=== PATIENT | female | born 2000 | race Hispanic/Latino ===

== ENCOUNTER 2024-11-09 13:28 | Emergency (ER) | payer OTHER ==
[~2024-11-09] VITALS: Ht 177.8 cm; Wt 124.7 kg
[2024-11-09] MEDS: ketOROlac 15MG/ML VIAL (15MG/ML) IV STA (14:30)
[2024-11-09] MEDS: acetaMINOPHEN 325 MG TAB PO STA (14:30)
[2024-11-09] MEDS: 0.9%NACL 1000ML 1,000 ML IV STA (14:30)
--- NOTE | 2024-11-09 15:22 | ERN ---
ED Note History of Present Illness Stated Complaint: HEADACHE,EARS HURT,NAUSEA, MULTIPLE COMPLAINTS Chief Complaint: Other Problems Time Seen by MD: 13:32 Time Seen by Midlevel: 13:36 Dictation: 23-year-old female coming in with multiple complaints, earache, throat pain, feeling weak. Patient states she was diagnosed with ear infection, strep throat and flu on four days ago, is currently taking doxycycline and a Medrol pack and received Rocephin x2 IM at the PCP's office. Patient states she feels like there is no improvement. And wants to evaluate if she has not pneumonia. Patient at this time vital signs are stable, no fever, no nausea, no vomiting. Allergies: Coded Allergies: Penicillins (Unverified Allergy, Unknown, 11/09/24) Past Medical History Past Medical History: No Pertinent History Surgical History: Other Surgical History Other: JESSY EYE SURGERY Review of System Dictation Constitutional: Negative for fever,chills, and weight loss Eyes: Negative for injury, pain,redness, and discharge ENT: Complaining of ear pain, throat pain Cardiovascular: Negative for chest pain, palpitations, and edema Respiratory: Negative for shortness of breath, finding of cough, and wheezing, Abdomen/GI: Negative for abdominal pain, nausea, vomiting, diarrhea, and constipation Back: Negative for injury and pain : Negative for injury, bleeding and discharge MS/Extremity: Negative for injury and deformity Skin: Negative for rash, and discoloration Neuro: Negative for headache, weakness, numbness, tingling, and seizure Psych: Negative for suicide ideation, homicidal ideation, and hallucinations Review of Systems: was completed Initial Vital Sign VS Vital Signs Date Time Temp Pulse Resp B/P (MAP) Pulse Ox O2 Delivery O2 Flow Rate FiO2 11/09/24 13:33 98.2 118 18 103/69 96 Room Air 11/09/24 13:59 0 21 Physical Exam Dictation General: awake, alert, NAD Head/Face: Normocephalic, atraumatic Eyes: PERRL, EOMI, vision at baseline ENT: oral cavity clear, TMs clear, no signs of infection Neck: Trachea midline, supple, no nuchal rigidity Cardiovascular: RRR, normal S1/S2, No MRGs, no JVD Respiratory: CTAB, no respiratory distress, No rales or wheezes Abdomen: Soft, non-tender, non-distended, normal bowel sounds, no guarding or rebound. Skin: Warm, dry, normal turgor, no rash MS/Extremity: Pulses equal, no cyanosis, neurovascular intact, FROM Neuro: COAx4, GCS 15, strength 5/5, CN 2-12 intact, normal cerebellar exam, normal gait, Psych: Normal behavior, mood, and affect normal ED Course ED Course Orders Procedure Category Date Status Time Chest 1vw RAD 11/09/24 Taken 13:51 0.9%Nacl 1000ml (Ns PHA 11/09/24 In Process 1000ml) 13:51 Acetaminophen 325 Tab PHA 11/09/24 Complete (Tylenol 325mg Tab 13:51 Ketorolac PHA 11/09/24 Complete Tromethamine 15mg/Ml 13:51 Current Medications Medications (Trade) Dose Ordered Sig/Maryjo Route PRN Reason Start Time Stop Time Status Last Admin Dose Admin Acetaminophen (TYLenol 325MG TAB) 650 mg ONCE STAT PO 11/09/24 13:51 11/09/24 13:55 DC 11/09/24 14:30 Ketorolac Tromethamine (toRADol) 15 mg ONCE STAT IV 11/09/24 13:51 11/09/24 13:55 DC 11/09/24 14:30 Sodium Chloride 1,000 ml @ 100 mls/hr Q10H STAT IV 11/09/24 13:51 11/09/24 23:50 11/09/24 14:30 Vital Signs Date Time Temp Pulse Resp B/P (MAP) Pulse Ox O2 Delivery O2 Flow Rate FiO2 11/09/24 13:59 98.2 118 18 103/69 96 Room Air* 0 21 11/09/24 13:33 98.2 118 18 103/69 96 Room Air Medical Decision Making MDM MDM: 23-year-old female coming in with multiple complaints, earache, throat pain, feeling weak. Patient states she was diagnosed with ear infection, strep throat and flu on four days ago, is currently taking doxycycline and a Medrol pack and received Rocephin x2 IM at the PCP's office. Patient states she feels like there is no improvement. And wants to evaluate if she has not pneumonia. Patient at this time vital signs are stable, no fever, no nausea, no vomiting. Differential diagnosis: Pneumonia, viral syndrome, Rationale: Tests considered and ordered secondary to shared decision making include: Previous outside records reviewed: Old ER visits. Risk of complication and/or morbidity or mortality of patient management: None Medications-Per medication reconciliation Need for hospitalization: Patient does not meet criteria for hospitalization. Need for emergency major/minor surgery: No There are no social concerns with this patient. Prescription drug management Prescriptions will include symptomatic care Patient's prior external medical records from other ER visits were reviewed by me as indicated. Prior testing and results from previous visits were reviewed. Prior tests were taken into account with medical decision making and resource utilization, independent historian/historians were used to obtain complete medical history. I independently interpreted the test that were performed, results were reviewed by me and considered findings on radiology if ordered. Medical management and examination interpretation discussions were had by me with other qualified healthcare professionals as indicated for the patient's care. DX & DISP Disposition: Discharge Departure Impression: Primary Impression: Cough Additional Impression: Viral infection Condition: Stable Referrals: LEONA DOW (PCP) Time of Disposition: 15:21 I have reviewed the case, and I agree with, Diagnosis and Plan CALEB DELATORRE NP Nov 09, 2024 15:22
[2024-11-09 15:35] VITALS: BP 126/60; PULSE 82; RESP 18; TEMP 98.2; O2SAT 96
--- NOTE | 2024-11-09 15:51 | HMCIMG ---
CHEST 1VW HISTORY: Cough COMPARISON: None FINDINGS: A frontal projection of the chest was obtained. Prominent interstitial markings are seen with possible superimposed infiltrates. The heart is normal in size. Mild degenerative changes are seen. No evidence of aortic calcification is seen. IMPRESSION: 1. Prominent interstitial markings are seen with possible superimposed infiltrates.
== END 2024-11-09 15:32 | disposition home or self-care (01) ==
LOC: EDH 13:28
DX: B34.9 Viral infection, unspecified (principal); Z88.0 Allergy status to penicillin; Z98.890 Other specified postprocedural states
CPT/HCPCS: 99283; 96374; 71045; J1885; J7030